=== PATIENT | male | born 1985 | race Caucasian/White ===

== ENCOUNTER 2017-11-12 21:17 | Emergency (ER) | payer OTHER ==
[~2017-11-12] VITALS: Ht 180.3 cm; Wt 57.6 kg
[~2017-11-12 21:17] MED LIST: NORCO 5-325 TA1 EACH PO; PREVACID 24HR15 MG PO; PROVENTIL IH
[2017-11-12] MEDS ORDERED: PERCOCET 7.5-31 EACH PO (21:47)
[2017-11-12 22:06] VITALS: BP 113/76
[2017-11-12] MEDS ORDERED: MELATONIN1 MG PO (22:39)
== END 2017-11-12 22:00 | disposition home or self-care (01) ==
LOC: ER 21:17
DX: S42.001D Fracture of unspecified part of right clavicle, subsequent encounter for fracture with routine healing (principal); X58.XXXD Exposure to other specified factors, subsequent encounter; F17.210 Nicotine dependence, cigarettes, uncomplicated; Z88.5 Allergy status to narcotic agent